=== PATIENT | female | born 1975 | race African-American/Black ===

== ENCOUNTER 2019-05-24 20:32 | Emergency (ER) | payer OTHER ==
[~2019-05-24] VITALS: Ht 144.8 cm; Wt 54.4 kg
[2019-05-24 20:36] VITALS: BP 123/74
[2019-05-24] MEDS ORDERED: BENADRYL25 MG PO (20:55)
[2019-05-24] MEDS ORDERED: PREDNISONE 20 M20 M1 PO (20:55)
== END 2019-05-24 21:15 | disposition home or self-care (01) ==
LOC: ER 20:32
DX: S80.861A Insect bite (nonvenomous), right lower leg, initial encounter (principal); S00.262A Insect bite (nonvenomous) of left eyelid and periocular area, initial encounter; Z90.710 Acquired absence of both cervix and uterus; W57.XXXA Bitten or stung by nonvenomous insect and other nonvenomous arthropods, initial encounter; Y92.89 Other specified places as the place of occurrence of the external cause; Y93.89 Activity, other specified; Y99.8 Other external cause status